=== PATIENT | female | born 1975 | race Caucasian/White ===

== ENCOUNTER 2024-04-08 16:27 | Inpatient (IN) ==
[2024-04-08 17:50] LABS: Basophils % (auto) 1.2 %; Eosinophils # (auto) 0.12 K/uL (0.00-0.50); Eosinophils % (auto) 1.5 %; Hematocrit (blood only) 41.6 % (37.0-47.0); Hemoglobin 13.8 g/dl (12.0-16.0); Immature Granulocytes # (auto) 0.02 K/uL (0.01-0.20); Immature Granulocytes % (auto) 0.2 %; Lymphocytes # (auto) 2.04 K/uL (1.20-3.40); Lymphocytes % (auto) 24.8 %; Mean Corpuscular Hemoglobin 29.7 pg (25.0-34.0); Mean Corpuscular Hgb Conc 33.2 g/dL (32.0-36.0); Mean Corpuscular Volume 89.5 fL (80.0-100.0); Mean Platelet Volume 11.1 fL (9.4-12.4); Monocytes # (auto) 0.58 K/uL (0.11-0.59); Monocytes % (auto) 7.1 %; Neutrophils # (auto) 5.35 K/uL (1.40-6.50); Neutrophils % (auto) 65.2 %; Platelet Count 237 K/uL (130-400); RDW Coefficient of Variation 13.6 % (11.5-14.5); RDW Standard Deviation 44.7 fL (36.4-46.3); Red Blood Count 4.65 M/uL (4.20-5.40); White Blood Count 8.21 K/ul (4.8-10.8)
--- NOTE | 2024-04-08 18:03 | XRay Report ---
EXAM: Radiograph of the Chest 1 View INDICATION: Syncope. TECHNIQUE: Frontal view of the chest. COMPARISON: 06/24/2023 FINDINGS: Lungs and pleural spaces: Increased interstitial markings is unchanged and appears chronic. No consolidation or pulmonary edema. No pleural effusion or pneumothorax. Heart: Shape and configuration within normal limits allowing for technique. Mediastinum: Normal contour. Bones/joints: No fracture, erosion or dislocation. Soft tissues: No abnormality noted. No radiopaque foreign body noted. Upper abdomen: No abnormality noted. IMPRESSION: No acute cardiopulmonary disease. ACT 112: Negative or not required by law. Electronically signed by Dione Skaggs 04-08-2024 6:03 PM
[2024-04-08 18:04] LABS: Albumin Globulin Ratio 1.5 (0.9-2); BUN Creatinine Ratio 18.6 (10-20); Bilirubin,Total 0.4 mg/dl (0.2-1.0); Globulin 2.7 gm/dl (2.5-4.0); Magnesium 1.6 mg/dl (1.7-2.4); Potassium 3.4 mmol/L (3.5-5.1); Total Protein 6.7 gm/dl (6.0-8.3)
[2024-04-08 18:06] LABS: Pregnancy Test, Serum Negative (Negative)
[2024-04-08 18:09] LABS: Troponin I High Sensitivity 4.6 pg/ml (0-14)
[2024-04-08 18:13] LABS: Partial Thromboplastin Ratio 0.9; Partial Thromboplastin Time 25 Seconds (21-31); Prothrombin Time 11.2 Seconds (9.0-12.0)
[2024-04-08 18:18] LABS: Thyroid Stimulating Hormone 3.226 uIu/ml (0.300-4.500)
--- NOTE | 2024-04-08 18:47 | CT Scan Report ---
EXAM: CT Head Without Intravenous Contrast INDICATION: Syncope x 3 today. TECHNIQUE: Axial computed tomography images of the head/brain without intravenous contrast. Sagittal and/or coronal reformats are provided. Sagittal and coronal reformatted images were created and reviewed. This CT exam was performed using one or more of the following dose reduction techniques: automated exposure control, adjustment of the mA and/or kV according to patient size, and/or use of iterative reconstruction technique. COMPARISON: No relevant prior studies available. FINDINGS: Limitations: None. Brain and extra-axial spaces: Old lacunar infarct left thalamus. No acute infarct. No hemorrhage. No extra-axial fluid collection or hydrocephalus. No significant white matter disease. Bones/joints: No abnormality noted. Soft tissues: No significant abnormality noted. Vasculature: No acute abnormality noted. Sinuses: No layering fluid in the visualized portions of the paranasal sinuses. Mastoid air cells: Chronic sclerotic changes left mastoid air cells. No mastoid effusion. Orbits: No significant abnormality noted. IMPRESSION: No acute findings in the head/brain. ACT 112: Negative or not required by law. Electronically signed by Dione Skaggs 04-08-2024 6:46 PM
--- NOTE | 2024-04-08 18:53 | CT Scan Report ---
EXAM: CT Cervical Spine Without Intravenous Contrast INDICATION: Syncope x 3 today. TECHNIQUE: Axial computed tomography images of the cervical spine without intravenous contrast. Sagittal and coronal reformatted images were created and reviewed. This CT exam was performed using one or more of the following dose reduction techniques: automated exposure control, adjustment of the mA and/or kV according to patient size, and/or use of iterative reconstruction technique. COMPARISON: 12/06/2023 FINDINGS: Limitations: None. Vertebrae: Stable facet arthrosis and spondylosis, uncal spurring and degrees of vertebral body fusion from C4-C7 unchanged. Stable anterior bridging spondylosis C3-C4 and developing bridging C7-T1. Anterior fusion plate intact and well-seated. No fracture or traumatic subluxation. Discs/spinal canal/neural foramina: Metallic intervertebral disc spacers at the fusion levels with complete obliteration of the intervertebral disc spaces. There is mild narrowing of C3-C4 and C7-T1. There is stable moderate to severe canal and foraminal stenosis at C4-C5, C5-C6 and C6-C7. Soft tissues: No significant abnormality noted. Lung apices: No significant abnormality noted. IMPRESSION: Stable postoperative and degenerative changes. No acute abnormality. ACT 112: Negative or not required by law. Electronically signed by Dione Skaggs 04-08-2024 6:53 PM
--- NOTE | 2024-04-08 19:11 | Emergency Department Note ---
Impression & Plan Syncope and collapse, Hypomagnesemia, Acute UTI ED Provider Note Provider: Ricardo Quiñonez MD CHIEF COMPLAINT: Syncope x 2, question convulsion HISTORY OF PRESENT ILLNESS: Patient is a 48-year-old female past medical history of neck surgery presenting here today via ambulance from home. Patient states she has had 2 episodes today where she syncopized and collapsed to the ground. States she felt a bit off before this happened. Fell to the ground. Struck her head. Complaining of some headache as well as a bit of chest discomfort. Maybe little bit of soreness of the left hip. Patient denies significant nausea or vomiting at this time. Denies recent illness or fever. Denies a history of seizure events in the past. Patient did have a drink of alcohol earlier but minimal food. No drug use reported today. PAST MEDICAL HISTORY: As noted above MEDICATIONS: Denies regular SOCIAL HISTORY: , regular marijuana alcohol usage PHYSICAL EXAM: GENERAL: alert and oriented in no acute distress on stretcher Head: normocephalic and atraumatic EYES: No injection, discharge or icterus. PERRL, EOMI. NECK: Trachea midline. Supple. ENT: Mucous membranes pink and moist. LUNGS: Airway patent. No retractions. Breath sounds clear with good air entry bilaterally. HEART: Regular rate and rhythm. No chest wall tenderness ABDOMEN: Soft and non-tender, without guarding or rebound. SKIN: Acyanotic, warm, dry, without rashes EXTREMITIES: Without swelling, tenderness or deformity NEUROLOGICAL: No focal deficits. No aphasia. No facial droop or slurred speech. Normal strength and tone in the extremities. Sensation to gross touch normal. Ambulatory. EK bpm. Sinus rhythm with PAC. No acute ST segment elevation or depression with QTc 449. CONTINUOUS CARDIAC MONITORING: was ordered and showed a heart rate of 70s to 90s bpm in normal sinus rhythm GCS 15. Patient's laboratory studies and imaging reviewed. Differential includes Vasovagal event, dehydration, infection, hypoglycemia, electrolyte abnormalities, cardiac sources, intracerebral event, pulmonary embolism, seizure, toxicologic, neurologic, as well as other pathologies. IMPRESSION/MEDICAL DECISION MAKING: Patient with some prodrome and then to syncopal episode she reports. Possibly some period of convulsion with one of them. From report sounds like it lasted several seconds and the maybe had a third episode for EMS. Given some IV fluid prior to arrival. Reports maybe a little bit of chest discomfort and a little bit of head soreness. CT of the head and cervical spine reassuring. Chest x- ray reassuring. EKG and troponin are reassuring. Magnesium slightly low but no other severe electrolyte abnormalities. Normal renal function. Normal blood counts. Does report some urinary frequency and UA will be obtained. X-ray of the left hip to be obtained to exclude fracture or dislocation she has a soreness there but has good range of motion. Given some IV magnesium for repletion. Report regular alcohol and marijuana use but did have some drinks today so does not sound like withdrawal. May have contributed however to the syncope. No see evidence of significant trauma on physical exam and no believe we need further imaging. LFTs, lipase, and CK normal without findings concerning for pancreatitis, hepatitis, or rhabdomyolysis. UA does return concerning for infection given a dose of IV ceftriaxone. May be contributing to her episodes today. DIAGNOSIS: Multiple syncopes, fall, hypomagnesemia, acute UTI DISPOSITION: Hospitalist will evaluate Patient was agreeable with this plan. Past Med/Surg History Problem List (Updated 04/08/24 @ 22:06 by Ricardo Quiñonez M.D.) Acute UTI (Acute) Hypomagnesemia (Acute) Syncope and collapse (Acute) Encounter for pre-operative examination History of neck surgery ROM WNL PER PT Chronic radicular lumbar pain (Acute) Chronic neck pain Medical History Memory changes SEEING [facility] DR. GREENE Tachycardia WAS JUST STRESS RELATED Degenerative disc disease Osteoarthritis GERD (gastroesophageal reflux disease) Lung nodule PT UNAWARE OF DETAILS Post traumatic stress disorder Depression NO MEDS AT PRESENT Anxiety NO MEDS AT PRESENT Asthma USES RES INH APPROX 2X WEEK Fatty liver Chronic radicular lumbar pain Chronic neck pain Cirrhosis pt unaware Hepatitis C finished treatment Surgical History History of laparoscopy History of colonoscopy History of tooth extraction History of tonsillectomy History of neck surgery ROM WNL PER PT H/O tubal ligation Family History Other Heart disease Social History Smoking Status: Current every day smoker Tobacco Type: Cigarettes Cigarettes Per Day: 1 PPD; Second Hand Exposure: Yes; Do You Dip or Chew Tobacco: No; Hx Alcohol Use: Yes Alcohol type: beer, wine and hard liquor Hx Substance Use: Yes Substance Use Type Other:: SMOKES BID OR MORE > ADVISED Preferred Language: Bulgarian Communication Ability: 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 Home Meds Home Medications Medication Instructions Recorded Confirmed albuterol sulfate 90 mcg/actuation 2 puff inhalation Q4 PRN Wheezing 10/23/19 04/08/24 aerosol inhaler Results & Data (ED) Vital Signs Vital Signs - 24 hr 04/08/24 16:17 04/08/24 16:17 04/08/24 16:17 Temperature 36.8 C Temperature Source Oral Pulse Rate 87 Pulse Rate [Apical] 87 Pulse Rate from SpO2 Sensor Pulse Rhythm Regular Pulse Rhythm [Apical] Regular Pulse Strength Normal Pulse Strength [Apical] Normal Respiratory Rate 24 24 Respiratory Effort / Characteristics Non-Labored Non-Labored Respiratory Depth Normal Normal Respiratory Pattern Regular Regular Blood Pressure 125/77 Blood Pressure [Right Arm] 125/77 Blood Pressure Mean 93 Blood Pressure Mean [Right Arm] 93 Blood Pressure Position Lying Blood Pressure Position [Right Arm] Lying Pulse Oximetry 95 95 Oxygen Delivery Method Room Air Room Air Room Air Sepsis Recent Fever Within 48 Hours No Sepsis New/Unexplained Change in Mental Status No Sepsis Action Taken by Nursing No Action Required 04/08/24 16:46 04/08/24 17:00 04/08/24 17:29 Temperature Temperature Source Pulse Rate 87 94 H 85 Pulse Rate [Apical] Pulse Rate from SpO2 Sensor 96 H Pulse Rhythm Regular Pulse Rhythm [Apical] Pulse Strength Pulse Strength [Apical] Respiratory Rate 23 18 Respiratory Effort / Characteristics Respiratory Depth Respiratory Pattern Blood Pressure 124/76 Blood Pressure [Right Arm] Blood Pressure Mean 95 Blood Pressure Mean [Right Arm] Blood Pressure Position Blood Pressure Position [Right Arm] Pulse Oximetry 96 94 Oxygen Delivery Method Room Air Sepsis Recent Fever Within 48 Hours Sepsis New/Unexplained Change in Mental Status Sepsis Action Taken by Nursing 04/08/24 17:30 04/08/24 18:00 04/08/24 19:00 Temperature Temperature Source Pulse Rate 85 87 87 Pulse Rate [Apical] Pulse Rate from SpO2 Sensor 85 85 86 Pulse Rhythm Pulse Rhythm [Apical] Pulse Strength Pulse Strength [Apical] Respiratory Rate 15 24 16 Respiratory Effort / Characteristics Respiratory Depth Respiratory Pattern Blood Pressure 110/70 113/83 102/62 Blood Pressure [Right Arm] Blood Pressure Mean 83 86 76 Blood Pressure Mean [Right Arm] Blood Pressure Position Blood Pressure Position [Right Arm] Pulse Oximetry 94 95 95 Oxygen Delivery Method Nasal Cannula Sepsis Recent Fever Within 48 Hours Sepsis New/Unexplained Change in Mental Status Sepsis Action Taken by Nursing 04/08/24 19:30 04/08/24 20:33 04/08/24 21:00 Temperature Temperature Source Pulse Rate 80 79 66 Pulse Rate [Apical] Pulse Rate from SpO2 Sensor 81 66 Pulse Rhythm Pulse Rhythm [Apical] Pulse Strength Pulse Strength [Apical] Respiratory Rate 17 13 Respiratory Effort / Characteristics Respiratory Depth Respiratory Pattern Blood Pressure 109/65 106/63 Blood Pressure [Right Arm] Blood Pressure Mean 76 77 Blood Pressure Mean [Right Arm] Blood Pressure Position Blood Pressure Position [Right Arm] Pulse Oximetry 94 95 Oxygen Delivery Method Room Air Room Air Sepsis Recent Fever Within 48 Hours Sepsis New/Unexplained Change in Mental Status Sepsis Action Taken by Nursing 04/08/24 21:30 Temperature Temperature Source Pulse Rate 73 Pulse Rate [Apical] Pulse Rate from SpO2 Sensor 72 Pulse Rhythm Pulse Rhythm [Apical] Pulse Strength Pulse Strength [Apical] Respiratory Rate 18 Respiratory Effort / Characteristics Respiratory Depth Respiratory Pattern Blood Pressure 101/67 Blood Pressure [Right Arm] Blood Pressure Mean 84 Blood Pressure Mean [Right Arm] Blood Pressure Position Blood Pressure Position [Right Arm] Pulse Oximetry 95 Oxygen Delivery Method Room Air Sepsis Recent Fever Within 48 Hours Sepsis New/Unexplained Change in Mental Status Sepsis Action Taken by Nursing Laboratory Data 04/08/24 17:02 04/08/24 17:02 Lab Results 04/08/24 04/08/24 04/08/24 Range/Units 17:02 19:20 19:38 WBC 8.21 (4.8-10.8) K/ul RBC 4.65 (4.20-5.40) M/uL Hgb 13.8 (12.0-16.0) g/dl Hct 41.6 (37.0-47.0) % MCV 89.5 (80.0-100.0) fL MCH 29.7 (25.0-34.0) pg MCHC 33.2 (32.0-36.0) g/dL RDW Std Deviation 44.7 (36.4-46.3) fL RDW Coeff of Opal 13.6 (11.5-14.5) % Plt Count 237 (130-400) K/uL MPV 11.1 (9.4-12.4) fL Immature Gran % (Auto) 0.2 % Neut % (Auto) 65.2 % Lymph % (Auto) 24.8 % Bartholomew % (Auto) 7.1 % Eos % (Auto) 1.5 % Baso % (Auto) 1.2 % Neut # (Auto) 5.35 (1.40-6.50) K/uL Lymph # (Auto) 2.04 (1.20-3.40) K/uL Bartholomew # (Auto) 0.58 (0.11-0.59) K/uL Eos # (Auto) 0.12 (0.00-0.50) K/uL Baso # (Auto) 0.10 (0.00-0.20) K/uL Immature Gran # (Auto) 0.02 (0.01-0.20) K/uL PT 11.2 (9.0-12.0) Seconds INR 1.0 (0.9-1.1) APTT 25 (21-31) Seconds PTT Ratio 0.9 Sodium 139 (136-145) mmol/L Potassium 3.4 L (3.5-5.1) mmol/L Chloride 104 (98-107) mmol/L Carbon Dioxide 24 (21-32) mmol/L Anion Gap 11 (3-11) BUN 13 (6-23) mg/dl Creatinine 0.70 (0.6-1.2) mg/dl Est Cr Clr Drug Dosing 97.0 ml/min eGFR 105.30 BUN/Creatinine Ratio 18.6 (10-20) Glucose 99 (70-99(Fasting)) mg/dl Calcium 9.0 (8.6-10.3) mg/dl Magnesium 1.6 L (1.7-2.4) mg/dl Total Bilirubin 0.4 (0.2-1.0) mg/dl AST 15 (13-39) U/L ALT 7 (7-52) U/L Alkaline Phosphatase 80 (34-104) U/L Total Creatine Kinase 37 (26-192) U/L Troponin I High Sens 4.6 (0-14) pg/ml Total Protein 6.7 (6.0-8.3) gm/dl Albumin 4.0 (3.4-5.0) gm/dl Globulin 2.7 (2.5-4.0) gm/dl Albumin/Globulin Ratio 1.5 (0.9-2) Lipase 23 (11-82) U/L TSH 3.226 (0.300-4.500) uIu/ml HCG, Qual Negative (Negative) Urine Color Yellow Urine Appearance Cloudy A (Clear) Urine pH 6.0 (4.5-7.5) Ur Specific [place] >= 1.030 (1.000-1.030) Urine Protein 1+ H (Negative) Urine Glucose (UA) Negative (Negative) Urine Ketones Negative (Negative) Urine Blood Trace-intact H (Negative) Urine Nitrite Positive A (Negative) Urine Bilirubin Negative (Negative) Urine Urobilinogen Negative (Negative) Ur Leukocyte Esterase 1+ H (Negative) Urine RBC 3-5 H (0-2) /hpf Urine WBC >50 H (0-5) /hpf Ur Epithelial Cells 0-2 (0-2) /hpf Urine Bacteria 4+ H (None Seen) Ethyl Alcohol mg/dL < 10.0 (<10.0) mg/dl Administered Medications Discontinued Medications Magnesium Sulfate/Dextrose (Magnesium Sulfate / D5w) 1 gm in 100 mls @ 200 mls/hr IV Q30M [facility] Stop: 04/08/24 20:06 Last Infusion: 04/08/24 21:05 Dose: Infused Documented By: Admin: 04/08/24 20:18 Dose: 200 mls/hr Documented By: Infusion: 04/08/24 20:18 Dose: Infused Documented By: Admin: 04/08/24 19:29 Dose: 200 mls/hr Documented By: SRL Ceftriaxone Sodium (Rocephin) 2,000 mg in 50 mls @ 100 mls/hr IV NOW STA Stop: 04/08/24 20:02 Last Infusion: 04/08/24 20:47 Dose: Infused Documented By: Admin: 04/08/24 20:18 Dose: 100 mls/hr Documented By: SHASTA Thiamine HCl 100 mg/ Syringe 10 mls @ 2 mls/min IV NOW STA Stop: 04/08/24 20:53 Last Admin: 04/08/24 21:52 Dose: 2 mls/min Documented By: SHASTA Imaging Data Radiologist's Impression: Cervical Spine CT 04/08/24 17:29 EXAM: CT Cervical Spine Without Intravenous Contrast INDICATION: Syncope x 3 today. TECHNIQUE: Axial computed tomography images of the cervical spine without intravenous contrast. Sagittal and coronal reformatted images were created and reviewed. This CT exam was performed using one or more of the following dose reduction techniques: automated exposure control, adjustment of the mA and/or kV according to patient size, and/or use of iterative reconstruction technique. COMPARISON: 12/06/2023 FINDINGS: Limitations: None. Vertebrae: Stable facet arthrosis and spondylosis, uncal spurring and degrees of vertebral body fusion from C4-C7 unchanged. Stable anterior bridging spondylosis C3-C4 and developing bridging C7-T1. Anterior fusion plate intact and well-seated. No fracture or traumatic subluxation. Discs/spinal canal/neural foramina: Metallic intervertebral disc spacers at the fusion levels with complete obliteration of the intervertebral disc spaces. There is mild narrowing of C3-C4 and C7-T1. There is stable moderate to severe canal and foraminal stenosis at C4-C5, C5-C6 and C6-C7. Soft tissues: No significant abnormality noted. Lung apices: No significant abnormality noted. IMPRESSION: Stable postoperative and degenerative changes. No acute abnormality. ACT 112: Negative or not required by law. Electronically signed by Dione Skaggs 04-08-2024 6:53 PM Chest X-Ray 04/08/24 17:29 EXAM: Radiograph of the Chest 1 View INDICATION: Syncope. TECHNIQUE: Frontal view of the chest. COMPARISON: 06/24/2023 FINDINGS: Lungs and pleural spaces: Increased interstitial markings is unchanged and appears chronic. No consolidation or pulmonary edema. No pleural effusion or pneumothorax. Heart: Shape and configuration within normal limits allowing for technique. Mediastinum: Normal contour. Bones/joints: No fracture, erosion or dislocation. Soft tissues: No abnormality noted. No radiopaque foreign body noted. Upper abdomen: No abnormality noted. IMPRESSION: No acute cardiopulmonary disease. ACT 112: Negative or not required by law. Electronically signed by Dione Skaggs 04-08-2024 6:[address] 04/08/24 17:29 EXAM: CT Head Without Intravenous Contrast INDICATION: Syncope x 3 today. TECHNIQUE: Axial computed tomography images of the head/brain without intravenous contrast. Sagittal and/or coronal reformats are provided. Sagittal and coronal reformatted images were created and reviewed. This CT exam was performed using one or more of the following dose reduction techniques: automated exposure control, adjustment of the mA and/or kV according to patient size, and/or use of iterative reconstruction technique. COMPARISON: No relevant prior studies available. FINDINGS: Limitations: None. Brain and extra-axial spaces: Old lacunar infarct left thalamus. No acute infarct. No hemorrhage. No extra-axial fluid collection or hydrocephalus. No significant white matter disease. Bones/joints: No abnormality noted. Soft tissues: No significant abnormality noted. Vasculature: No acute abnormality noted. Sinuses: No layering fluid in the visualized portions of the paranasal sinuses. Mastoid air cells: Chronic sclerotic changes left mastoid air cells. No mastoid effusion. Orbits: No significant abnormality noted. IMPRESSION: No acute findings in the head/brain. ACT 112: Negative or not required by law. Electronically signed by Dione Skaggs 04-08-2024 6:46 PM Hip/Pelvis X-Ray 04/08/24 19:11 Exam(s): XR HIP + PELVIS, 1 view EXAM: XR Left Hip With Pelvis When Performed, 2 or 3 Views CLINICAL HISTORY: Reason for exam: fall, pain. TECHNIQUE: Two or three views of the left hip with pelvis when performed. COMPARISON: No relevant prior studies available. FINDINGS: Bones/joints: Unremarkable. No fracture or malalignment. IMPRESSION: Normal left hip x-rays. Electronically signed by: Barron Calderon MD 04/08/24 21:41 PM Discharge Plan Visit Data Chief Complaint: Syncope ED Provider: Ricardo Quiñonez Discharge Problem: Syncope and collapse, Hypomagnesemia, Acute UTI Patient Disposition: Admitted As Inpatient Discharge Instructions Interventions: ED Discharge Assessment Last Done: 04/08/24 21:51 Forms Stand Alone Forms: [employer] Prescriptions Prescriptions: No Action albuterol sulfate 90 mcg/actuation HFA aerosol inhaler 2 puff INHALATION Q4 PRN (Reason: Wheezing) Rx Instructions: Pt states she only uses once in awhile. Referrals Referrals: Leticia Moss PA-C [Primary Care Provider] -
[2024-04-08] MEDS: MAGNESIUM SULFATE / D5W 1 GM/100 ML BAG IV SCH (19:29)
[2024-04-08 19:30] LABS: Appearance Urine Cloudy (Clear); Bilirubin Urine Negative (Negative); Blood Urine Trace-intact (Negative); Color Urine Yellow; Glucose Urine UA Negative (Negative); Ketones Urine Negative (Negative); Leukocyte Esterase Urine 1+ (Negative); Nitrite Urine Positive (Negative); Protein Urine 1+ (Negative); Specific Gravity Urine >= 1.030 (1.000-1.030); Urobilinogen Urine Negative (Negative)
[2024-04-08 20:05] LABS: Bacteria Urine 4+ (None Seen); Epithelial Cell Urine 0-2 /hpf (0-2); WBC Urine >50 /hpf (0-5)
[2024-04-08] MEDS: cefTRIAXone SODIUM 2,000 MG/50 ML BAG IV STA (20:18)
--- NOTE | 2024-04-08 21:42 | XRay Report ---
Exam(s): XR HIP + PELVIS, 1 view EXAM: XR Left Hip With Pelvis When Performed, 2 or 3 Views CLINICAL HISTORY: Reason for exam: fall, pain. TECHNIQUE: Two or three views of the left hip with pelvis when performed. COMPARISON: No relevant prior studies available. FINDINGS: Bones/joints: Unremarkable. No fracture or malalignment. IMPRESSION: Normal left hip x-rays. Electronically signed by: Barron Calderon MD 04/08/24 21:41 PM
[2024-04-08] MEDS: THIAMINE HCL 100 MG in SYRINGE 9 ML IV STA (21:52)
[2024-04-08] MEDS ORDERED: ALBUTEROL HFA 8 GM INHALER INH PRN (22:10)
[2024-04-08] MEDS ORDERED: LORazepam 2 MG/1 ML VIAL IV PRN ×4 (22:10)
[2024-04-08] MEDS ORDERED: GABAPENTIN 1200MG ALCOHOL WITHDRAWAL LOAD PO STA (22:10)
[2024-04-08] MEDS ORDERED: POLYETHYLENE (MIRALAX) 17 GM PACK PO PRN (22:10)
[2024-04-08] MEDS ORDERED: Ativan IV Alcohol Withdrawal--Active Protocol IV PRN (22:10)
[2024-04-08] MEDS ORDERED: NITROGLYCERIN SL 0.4 MG/TAB TAB SL PRN (22:10)
[2024-04-08] MEDS: ACETAMINOPHEN 325 MG TAB PO PRN (22:35)
[2024-04-08] MEDS: GABAPENTIN 600 MG TAB PO ONE (22:36)
[2024-04-08] MEDS: SODIUM CHLORIDE 0.9% 1,000 ML IV SCH (22:39)
[2024-04-09] MEDS: GABAPENTIN 600 MG TAB PO SCH (04:28)
--- NOTE | 2024-04-09 05:59 | History & Physical Report ---
Date of Service April 08, 2024 Assessment & Plan (1) Syncope and collapse: Plan: 48-year-old female with past medical history significant for chronic hepatitis C cured after antiviral drug therapy, gastroparesis, left foot drop, cervical myelopathy, ongoing alcoholism, tobacco use disorder, paranoia, depression, generalized anxiety disorder, psychosocial stressors presents with syncope. Patient was sitting in the car when she felt blurred vision and sweating and she went out of the car when she suddenly passed out and fell down. Patient thinks she hit her head. She passed out for few seconds. Her was with her. After she woke up she passed out again for few more seconds. Then she sat on the chair . As EMS was coming she had lot of shaking of the body. She remembers shaking. No biting of the tongue. No bowel or bladder incontinence. Has some mild headache. Has mild chest discomfort. Currently no nausea. No cough. No runny nose or sore throat. Eating and drinking okay. No abdominal pain. Normal bowel movements. She says she has burning micturition since about a month. She says she drinks 3-5 shots of vodka daily. Last drink was mixed drink in the morning. Currently hemodynamics are okay. Patient also has history of cervical cord compression and decompression and progressive gait dysfunction and follows with neurology. Patient states she falls frequently. Patient says she is not taking any medication currently. Syncope and collapse CT head is okay EKG and troponin okay Will monitor telemetry Gentle fluids Orthostatics Serial cardiac enzymes and echo Consult cardiology in a.m. Possible seizures Ongoing alcoholism Patient was shaking but no loss of consciousness during episode We will check EEG Neuroconsult Alcoholism IV thiamine and folic acid Multivitamins Alcohol withdrawal protocol with gabapentin and Ativan as needed Close monitor Acute UTI Possible contributing to current symptoms Rocephin Will follow cultures Depression Generalized anxiety disorder Paranoia Currently not on any medications may may need to follow with psychiatrist History of hep C cured after antiviral drug therapy DVT prophylaxis SCDs for now Disposition Telemetry Full code. History of Present Illness Chief Complaint: Syncope Primary Care Provider: Leticia Moss PA-C 48-year-old female with past medical history significant for chronic hepatitis C cured after antiviral drug therapy, gastroparesis, left foot drop, cervical myelopathy, ongoing alcoholism, tobacco use disorder, paranoia, depression, generalized anxiety disorder, psychosocial stressors presents with syncope. Patient was sitting in the car when she felt blurred vision and sweating and she went out of the car when she suddenly passed out and fell down. Patient thinks she hit her head. She passed out for few seconds. Her was with her. After she woke up she passed out again for few more seconds. Then she sat on the chair . As EMS was coming she had lot of shaking of the body. She remembers shaking. No biting of the tongue. No bowel or bladder incontinence. Has some mild headache. Has mild chest discomfort. Currently no nausea. No cough. No runny nose or sore throat. Eating and drinking okay. No abdominal pain. Normal bowel movements. She says she has burning micturition since about a month. She says she drinks 3-5 shots of vodka daily. Last drink was mixed drink in the morning. Currently hemodynamics are okay. Patient also has h istory of cervical cord compression and decompression and progressive gait dysfunction and follows with neurology. Patient states she falls frequently. Patient says she is not taking any medication currently. Past medical history. As mentioned above Past surgical history. Arthrodesis. Colonoscopy and EGD. EGD with endoscopic ultrasound. Injection of lumbosacral spine. Pyloromyotomy. Discectomy anterior cervical. Ultrasound guided right breast biopsy/fibroadenoma. Social history. . Smokes 0.5 packs a day. Alcohol 3-5 shots of vodka daily. Smokes marijuana 2 times a week as per epic. History of IV drug use and reason for hep C as per epic. Family history. Son has Jackson's, bipolar disorder. Mother had emphysema. Sister has GERD. Father had lung disorder. Cousin has parkinsonism. Allergies Allergy/AdvReac Type Severity Reaction Status Date / Time Antibiotic - Unknown Allergy Intermediate Caused a Uncoded 12/06/23 11:28 rash on my legs, but I don't remember which one. Home Medications Medication Instructions Recorded Confirmed Type albuterol sulfate 90 mcg/actuation 2 puff inhalation Q4 PRN Wheezing 10/23/19 04/08/24 History aerosol inhaler Past Med/Surg History Problem List (Updated 04/08/24 @ 22:10 by Background Daemon) Acute UTI (Acute) Hypomagnesemia (Acute) Syncope and collapse (Acute) Encounter for pre-operative examination History of neck surgery ROM WNL PER PT Chronic radicular lumbar pain (Acute) Chronic neck pain Medical History Memory changes SEEING [facility]. GREENE Tachycardia WAS JUST STRESS RELATED Degenerative disc disease Osteoarthritis GERD (gastroesophageal reflux disease) Lung nodule PT UNAWARE OF DETAILS Post traumatic stress disorder Depression NO MEDS AT PRESENT Anxiety NO MEDS AT PRESENT Asthma USES RES INH APPROX 2X WEEK Fatty liver Chronic radicular lumbar pain Chronic neck pain Cirrhosis pt unaware Hepatitis C finished treatment Surgical History History of laparoscopy History of colonoscopy History of tooth extraction History of tonsillectomy History of neck surgery ROM WNL PER PT H/O tubal ligation Family History Other Heart disease Social History Smoking Status: Current every day smoker Tobacco Type: Cigarettes Cigarettes Per Day: 1 pack; Second Hand Exposure: Yes; Do You Dip or Chew Tobacco: No; Hx Alcohol Use: Yes Alcohol type: hard liquor Hx Substance Use: Yes Last Used Substance: Hours (ago) Substance Use Type Other:: SMOKES BID OR MORE > ADVISED Preferred Language: Guinean Communication Ability: Effective Merchandising Internship Required: No Beliefs That Will Affect Care: None marital status: Single Current Living Situation: Spouse current occupational status: unemployed Other Information That Helps Us Care for You: No Feels Safe at Home: Yes Safety Concerns: Feels Safe At This Time Assistive Devices: Glasses Review of Systems Review of Systems: All systems reviewed & are unremarkable except as noted in HPI & below Physical Exam Physical Exam: General-Not in distress Head- atraumatic Eyes- PERRL. ENT- oropharynx clear Neck- supple, no JVD. Lungs- clear to auscultation no wheezing or crackles Heart- regular rate and rhythm; no murmur, no gallop. Abdomen- normal bowel sounds, soft, nontender, no distension Extremities- no pretibial edema, no erythema seen Neuro- alert, oriented PERRL, no facial palsy; no dysarthria; obeys commands, moves extremities Results & Data Results & Data Vital Signs (Past 12 Hours) Vital Signs Temp Pulse Pulse Resp BP BP Pulse Ox 04/08/24 20:33 79 04/08/24 19:00 87 16 102/62 95 04/08/24 18:00 87 24 113/83 95 04/08/24 17:30 85 15 110/70 94 04/08/24 17:29 85 18 94 04/08/24 17:00 94 H 23 124/76 96 04/08/24 16:46 87 04/08/24 16:17 87 24 125/77 95 04/08/24 16:17 04/08/24 16:17 36.8 C 87 24 125/77 95 O2 Del Method 04/08/24 20:33 04/08/24 19:00 Nasal Cannula 04/08/24 18:00 04/08/24 17:30 04/08/24 17:29 Room Air 04/08/24 17:00 04/08/24 16:46 04/08/24 16:17 Room Air 04/08/24 16:17 Room Air 04/08/24 16:17 Room Air Diagnostic Findings Laboratory Results WBC 8.21 K/ul (4.8-10.8) 04/08/24 17:02 RBC 4.65 M/uL (4.20-5.40) 04/08/24 17:02 Hgb 13.8 g/dl (12.0-16.0) 04/08/24 17:02 Hct 41.6 % (37.0-47.0) 04/08/24 17:02 MCV 89.5 fL (80.0-100.0) 04/08/24 17:02 MCH 29.7 pg (25.0-34.0) 04/08/24 17:02 MCHC 33.2 g/dL (32.0-36.0) 04/08/24 17:02 RDW Std Deviation 44.7 fL (36.4-46.3) 04/08/24 17:02 RDW Coeff of Opal 13.6 % (11.5-14.5) 04/08/24 17:02 Plt Count 237 K/uL (130-400) 04/08/24 17:02 MPV 11.1 fL (9.4-12.4) 04/08/24 17:02 Immature Gran % (Auto) 0.2 % 04/08/24 17:02 Neut % (Auto) 65.2 % 04/08/24 17:02 Lymph % (Auto) 24.8 % 04/08/24 17:02 Hart % (Auto) 7.1 % 04/08/24 17:02 Eos % (Auto) 1.5 % 04/08/24 17:02 Baso % (Auto) 1.2 % 04/08/24 17:02 Neut # (Auto) 5.35 K/uL (1.40-6.50) 04/08/24 17:02 Lymph # (Auto) 2.04 K/uL (1.20-3.40) 04/08/24 17:02 Hart # (Auto) 0.58 K/uL (0.11-0.59) 04/08/24 17:02 Eos # (Auto) 0.12 K/uL (0.00-0.50) 04/08/24 17:02 Baso # (Auto) 0.10 K/uL (0.00-0.20) 04/08/24 17:02 Immature Gran # (Auto) 0.02 K/uL (0.01-0.20) 04/08/24 17:02 PT 11.2 Seconds (9.0-12.0) 04/08/24 17:02 INR 1.0 (0.9-1.1) 04/08/24 17:02 APTT 25 Seconds (21-31) 04/08/24 17:02 PTT Ratio 0.9 04/08/24 17:02 Sodium 139 mmol/L (136-145) 04/08/24 17:02 Potassium 3.4 mmol/L (3.5-5.1) L 04/08/24 17:02 Chloride 104 mmol/L (98-107) 04/08/24 17:02 Carbon Dioxide 24 mmol/L (21-32) 04/08/24 17:02 Anion Gap 11 (3-11) 04/08/24 17:02 BUN 13 mg/dl (6-23) 04/08/24 17:02 Creatinine 0.70 mg/dl (0.6-1.2) 04/08/24 17:02 Est Cr Clr Drug Dosing 97.0 ml/min 04/08/24 17:02 eGFR 105.30 04/08/24 17:02 BUN/Creatinine Ratio 18.6 (10-20) 04/08/24 17:02 Glucose 99 mg/dl (70-99(Fasting)) 04/08/24 17:02 Calcium 9.0 mg/dl (8.6-10.3) 04/08/24 17:02 Magnesium 1.6 mg/dl (1.7-2.4) L 04/08/24 17:02 Total Bilirubin 0.4 mg/dl (0.2-1.0) 04/08/24 17:02 AST 15 U/L (13-39) 04/08/24 17:02 ALT 7 U/L (7-52) 04/08/24 17:02 Alkaline Phosphatase 80 U/L (34-104) 04/08/24 17:02 Total Creatine Kinase 37 U/L (26-192) 04/08/24 17:02 Troponin I High Sens 4.6 pg/ml (0-14) 04/08/24 17:02 Total Protein 6.7 gm/dl (6.0-8.3) 04/08/24 17:02 Albumin 4.0 gm/dl (3.4-5.0) 04/08/24 17:02 Globulin 2.7 gm/dl (2.5-4.0) 04/08/24 17:02 Albumin/Globulin Ratio 1.5 (0.9-2) 04/08/24 17:02 Lipase 23 U/L (11-82) 04/08/24 17:02 TSH 3.226 uIu/ml (0.300-4.500) 04/08/24 17:02 HCG, Qual Negative (Negative) 04/08/24 17:02 Urine Color Yellow 04/08/24 19:20 Urine Appearance Cloudy (Clear) A 04/08/24 19:20 Urine pH 6.0 (4.5-7.5) 04/08/24 19:20 Ur Specific Hope >= 1.030 (1.000-1.030) 04/08/24 19:20 Urine Protein 1+ (Negative) H 04/08/24 19:20 Urine Glucose (UA) Negative (Negative) 04/08/24 19:20 Urine Ketones Negative (Negative) 04/08/24 19:20 Urine Blood Trace-intact (Negative) H 04/08/24 19:20 Urine Nitrite Positive (Negative) A 04/08/24 19:20 Urine Bilirubin Negative (Negative) 04/08/24 19:20 Urine Urobilinogen Negative (Negative) 04/08/24 19:20 Ur Leukocyte Esterase 1+ (Negative) H 04/08/24 19:20 Urine RBC 3-5 /hpf (0-2) H 04/08/24 19:20 Urine WBC >50 /hpf (0-5) H 04/08/24 19:20 Ur Epithelial Cells 0-2 /hpf (0-2) 04/08/24 19:20 Urine Bacteria 4+ (None Seen) H 04/08/24 19:20 Ethyl Alcohol mg/dL < 10.0 mg/dl (<10.0) 04/08/24 19:[address] 04/08/24 17:29 EXAM: CT Cervical Spine Without Intravenous Contrast INDICATION: Syncope x 3 today. TECHNIQUE: Axial computed tomography images of the cervical spine without intravenous contrast. Sagittal and coronal reformatted images were created and reviewed. This CT exam was performed using one or more of the following dose reduction techniques: automated exposure control, adjustment of the mA and/or kV according to patient size, and/or use of iterative reconstruction technique. COMPARISON: 12/06/2023 FINDINGS: Limitations: None. Vertebrae: Stable facet arthrosis and spondylosis, uncal spurring and degrees of vertebral body fusion from C4-C7 unchanged. Stable anterior bridging spondylosis C3-C4 and developing bridging C7-T1. Anterior fusion plate intact and well-seated. No fracture or traumatic subluxation. Discs/spinal canal/neural foramina: Metallic intervertebral disc spacers at the fusion levels with complete obliteration of the intervertebral disc spaces. There is mild narrowing of C3-C4 and C7-T1. There is stable moderate to severe canal and foraminal stenosis at C4-C5, C5-C6 and C6-C7. Soft tissues: No significant abnormality noted. Lung apices: No significant abnormality noted. IMPRESSION: Stable postoperative and degenerative changes. No acute abnormality. ACT 112: Negative or not required by law. Electronically signed by Dione Skaggs 04-08-2024 6:53 PM Chest X-Ray 04/08/24 17:29 EXAM: Radiograph of the Chest 1 View INDICATION: Syncope. TECHNIQUE: Frontal view of the chest. COMPARISON: 06/24/2023 FINDINGS: Lungs and pleural spaces: Increased interstitial markings is unchanged and appears chronic. No consolidation or pulmonary edema. No pleural effusion or pneumothorax. Heart: Shape and configuration within normal limits allowing for technique. Mediastinum: Normal contour. Bones/joints: No fracture, erosion or dislocation. Soft tissues: No abnormality noted. No radiopaque foreign body noted. Upper abdomen: No abnormality noted. IMPRESSION: No acute cardiopulmonary disease. ACT 112: Negative or not required by law. Electronically signed by Dione Skaggs 04-08-2024 6:[address] 04/08/24 17:29 EXAM: CT Head Without Intravenous Contrast INDICATION: Syncope x 3 today. TECHNIQUE: Axial computed tomography images of the head/brain without intravenous contrast. Sagittal and/or coronal reformats are provided. Sagittal and coronal reformatted images were created and reviewed. This CT exam was performed using one or more of the following dose reduction techniques: automated exposure control, adjustment of the mA and/or kV according to patient size, and/or use of iterative reconstruction technique. COMPARISON: No relevant prior studies available. FINDINGS: Limitations: None. Brain and extra-axial spaces: Old lacunar infarct left thalamus. No acute infarct. No hemorrhage. No extra-axial fluid collection or hydrocephalus. No significant white matter disease. Bones/joints: No abnormality noted. Soft tissues: No significant abnormality noted. Vasculature: No acute abnormality noted. Sinuses: No layering fluid in the visualized portions of the paranasal sinuses. Mastoid air cells: Chronic sclerotic changes left mastoid air cells. No mastoid effusion. Orbits: No significant abnormality noted. IMPRESSION: No acute findings in the head/brain. ACT 112: Negative or not required by law. Electronically signed by Dione Skaggs 04-08-2024 6:46 PM Hip/Pelvis X-Ray 04/08/24 19:11 Exam(s): XR HIP + PELVIS, 1 view EXAM: XR Left Hip With Pelvis When Performed, 2 or 3 Views CLINICAL HISTORY: Reason for exam: fall, pain. TECHNIQUE: Two or three views of the left hip with pelvis when performed. COMPARISON: No relevant prior studies available. FINDINGS: Bones/joints: Unremarkable. No fracture or malalignment. IMPRESSION: Normal left hip x-rays. Electronically signed by: Barron Calderon MD 04/08/24 21:41 PM ECG Additional Comments: ECG. Sinus rhythm with PACs at the rate of 86. Possible left atrial lodgment. QTc 449. Code Status & VTE Plan VTE Prophylaxis Plan VTE Prophylaxis will be ordered: Yes
[2024-04-09 06:11] LABS: Basophils # (auto) 0.09 K/uL (0.00-0.20); Basophils % (auto) 0.9 %; Eosinophils # (auto) 0.19 K/uL (0.00-0.50); Eosinophils % (auto) 1.8 %; Hematocrit (blood only) 41.2 % (37.0-47.0); Hemoglobin 13.8 g/dl (12.0-16.0); Immature Granulocytes # (auto) 0.03 K/uL (0.01-0.20); Immature Granulocytes % (auto) 0.3 %; Lymphocytes # (auto) 2.41 K/uL (1.20-3.40); Lymphocytes % (auto) 23.1 %; Mean Corpuscular Hemoglobin 30.2 pg (25.0-34.0); Mean Corpuscular Hgb Conc 33.5 g/dL (32.0-36.0); Mean Corpuscular Volume 90.2 fL (80.0-100.0); Mean Platelet Volume 10.9 fL (9.4-12.4); Monocytes # (auto) 0.69 K/uL (0.11-0.59); Monocytes % (auto) 6.6 %; Neutrophils # (auto) 7.04 K/uL (1.40-6.50); Neutrophils % (auto) 67.3 %; Platelet Count 251 K/uL (130-400); RDW Coefficient of Variation 13.3 % (11.5-14.5); RDW Standard Deviation 43.8 fL (36.4-46.3); Red Blood Count 4.57 M/uL (4.20-5.40); White Blood Count 10.45 K/ul (4.8-10.8)
[2024-04-09 06:24] LABS: Albumin Level 3.8 gm/dl (3.4-5.0); BUN Creatinine Ratio 18.2 (10-20); Bilirubin Direct 0.1 mg/dl (0-0.2); Bilirubin,Total 0.5 mg/dl (0.2-1.0); Creatinine Clr Calc Pharmacy 102.9 ml/min; Magnesium 2.3 mg/dl (1.7-2.4); Phosphorus 3.7 mg/dl (2.5-4.9); Potassium 3.7 mmol/L (3.5-5.1); Total Protein 6.4 gm/dl (6.0-8.3)
[2024-04-09 06:30] LABS: Troponin I High Sensitivity 5.9 pg/ml (0-14)
[2024-04-09 07:49] LABS: Folate (Folic Acid),Ser orPlas 6.03 ng/ml (>5.38)
--- NOTE | 2024-04-09 07:58 | Electrocardiogram Report ---
Test Reason : Blood Pressure : */* mmHG Vent. Rate : 55 BPM Atrial Rate : 55 BPM P-R Int : 126 ms QRS Dur : 86 ms QT Int : 446 ms P-R-T Axes : 77 77 67 degrees QTcB Int : 426 ms Sinus bradycardia with sinus arrhythmia Otherwise normal ECG When compared with ECG of 08-Apr-2024 16:41, Premature atrial complexes are no longer Present Vent. rate has decreased by 31 bpm Confirmed by Des Lund ([id number]) on 04/09/2024 7:58:23 AM Referred By: REFERRED SELF Confirmed By: Des Lund
--- NOTE | 2024-04-09 07:58 | Electrocardiogram Report ---
Test Reason : Blood Pressure : */* mmHG Vent. Rate : 86 BPM Atrial Rate : 86 BPM P-R Int : 128 ms QRS Dur : 80 ms QT Int : 376 ms P-R-T Axes : 75 76 56 degrees QTcB Int : 449 ms Sinus rhythm with Premature atrial complexes Borderline ECG When compared with ECG of 06-Dec-2023 09:48, Premature atrial complexes are now Present Confirmed by Des Lund ([id number]) on 04/09/2024 7:58:15 AM Referred By: REFERRED SELF Confirmed By: Des Lund
[2024-04-09] MEDS ORDERED: INFLUENZA VACC TS2024-25(6m+)/PF (IIV3) 0.5mL Syr IM ONE (08:00)
[2024-04-09] MEDS: FOLIC ACID 1 MG in SYRINGE 9.8 ML IV SCH (09:54)
[2024-04-09] MEDS: THIAMINE HCL 100 MG in SYRINGE 9 ML IV SCH (09:55)
[2024-04-09] MEDS: MULTIVITAMIN TAB PO SCH (09:56)
--- NOTE | 2024-04-09 10:08 | Cardiology Consultation ---
Date of Consultation April 09, 2024 Assessment & Plan (1) Syncope and collapse: (2) Hypomagnesemia: Plan Patient admitted after 2 syncopal episodes with possible seizure like activity per patient/bystanders Head CT unremarkable. Neuro consulted and seizure work up pending. No arrhythmias on telemetry BP within normal limits since admission. EKG without ischemic change Low potassium and low magnesium on arrival, supplemented. Likely secondary to chronic alcohol abuse. Echocardiogram pending. HS troponin negative x3 since admission. Repeat pending this morning with atypical chest pain. Repeat EKG at time of chest pain, without ischemic changes. Would monitor for symptoms of alcohol withdrawal. Proceed with neurologic work up. Alcohol cessation encouraged. Patient reports she was previously in rehab for alcohol abuse. Continue on telemetry during admission. Consider outpatient ZIO monitor upon discharge. Case discussed with Dr. Reyes I spent a total of 60 minutes on the date of service in preparation, delivery, and documentation of the care provided to this patient, excluding any time spent in the performance of separately billed services. Elda Flannery PA-C Department of Cardiology, [facility] This chart was completed in part utilizing Speech Voice Recognition Software. Grammatical errors, random word insertions, pronoun errors, and incomplete sentences are an occasional consequence of this system due to software limitations, ambient noise, and hardware issues. Any formal questions or concerns about the content, text, or information contained within the body of this dictation should be directly addressed to the provider for clarification. Supervising Physician Co-Signing Physician Notes Attending attestation: Case reviewed with the advanced practitioner. I have personally performed a history and physical examination on the patient. I have reviewed the advanced practitioner's documentation on the date of service referenced in note, and I agree with, and take responsibility for the plan of care. Subjective: Sinus rhythm in the 70s to 80s noted on telemetry. Denies any additional loss of consciousness episodes while in the hospital. On review of systems describes a "chest pressure "which she had during my conversation with her and without rest, and was not characteristic and description of angina. Exam: Cardiovascular: Regular rhythm, no murmurs Data: Serial EKG tracings performed 04/08/2024 and 06/10/2023 are normal. Echocardiogram reveals no evidence of structural heart disease with normal LVEF. Normal myocardial thickness. Impression/ Plan: Loss of consciousness episodes in the setting of alcohol dependence. -Continue monitor on telemetry. -A 14-day outpatient Zio patch monitor. -Agree with plans for neurology workup. I spent a total of 20 minutes coordinating, documenting, and providing care for this patient excluding time spent in the performance of separately billed services or time spent by another provider. Richy Reyes, History of Present Illness Reason for Consultation: Syncope Requesting Physician: Isaias Hospitalist Attending Physician: Fernando Jones MD History of Present Illness Patient is a 48 year old female who presented to [facility] yesterday after several syncopal episodes yesterday afternoon, possibly associated with seizure like activity. Patient denies history of cardiovascular problems. She believes she had similar spells approx 20 years ago but never had formal evaluation. History includes: 1. Chronic alcohol abuse 2. marijuana use 3. Chronic neck pain with radiculopathy/left sided weakness Patient reports getting out of the car yesterday and felt hot/flushed and remembers falling to the ground. Apparently bystanders said she lost con sciousness for several minutes and had "convulsions". She was able to get back to her feet and then had a repeated incident. EMS was summoned. Patient reports she had no food intake yesterday. She admits to having an "eating disorder" and does not feel well when she eats so she goes long periods of time without food consumption. She admits to drinking 5-6 shots of alcohol the night before, and possibly one alcohol beverage yesterday before incident. Upon arrival to ER, EKG demonstrated NSR, without acute ischemic changes. Telemetry reviewed since admission demonstrating NSR without arrhythmias. Her magnesium was low at 1.6 and potassium was low at 3.4. These were supplemented. HS troponin negative x2 since admission. This morning, patient laying in bed. Admits to feeling anxious about what occurred. She reports mild substernal chest tightness developed this morning. No radiation. Described as a heaviness. No associated symptoms. No dizziness, lightheadedness, syncope or near syncope. No palpitations. Repeat EKG this morning x2 demonstrating normal sinus rhythm without ischemic changes. Repeat HS troponin this morning was negative. Repeat ordered for 10-11 AM. Allergies Allergy/AdvReac Type Severity Reaction Status Date / Time Antibiotic - Unknown Allergy Intermediate Caused a Uncoded 12/06/23 11:28 rash on my legs, but I don't remember which one. Home Medications Medication Instructions Recorded Confirmed Type albuterol sulfate 90 mcg/actuation 2 puff inhalation Q4 PRN Wheezing 10/23/19 04/08/24 History aerosol inhaler Patient History Medical History Memory changes SEEING [facility] DR. GREENE Tachycardia WAS JUST STRESS RELATED Degenerative disc disease Osteoarthritis GERD (gastroesophageal reflux disease) Lung nodule PT UNAWARE OF DETAILS Post traumatic stress disorder Depression NO MEDS AT PRESENT Anxiety NO MEDS AT PRESENT Asthma USES RES INH APPROX 2X WEEK Fatty liver Chronic radicular lumbar pain Chronic neck pain Cirrhosis pt unaware Hepatitis C finished treatment Surgical History History of laparoscopy History of colonoscopy History of tooth extraction History of tonsillectomy History of neck surgery ROM WNL PER PT H/O tubal ligation Family History Other Heart disease Social History Smoking Status: Current every day smoker Tobacco Type: Cigarettes Cigarettes Per Day: 1 pack; Second Hand Exposure: Yes; Do You Dip or Chew Tobacco: No; Hx Alcohol Use: Yes Alcohol type: hard liquor Hx Substance Use: Yes Last Used Substance: Hours (ago) Substance Use Type Other:: SMOKES BID OR MORE > ADVISED Preferred Language: Slovak Communication Ability: Effective Knuckler Required: No Beliefs That Will Affect Care: None marital status: Single Current Living Situation: Spouse current occupational status: unemployed Other Information That Helps Us Care for You: No Feels Safe at Home: Yes Safety Concerns: Feels Safe At This Time Assistive Devices: Glasses Review of Systems Review of Systems: All systems reviewed & are unremarkable except as noted in HPI & below Physical Exam Constitutional: WD/WN, vitals as above Neck: trachea midline, no thyromegaly Respiratory: normal respiratory effort; no labored breathing Auscultation: lungs clear to auscultation bilaterally Cardiovascular: Rate/Rhythm: regular rate and regular rhythm Heart Sounds: normal S1 and normal S2; no murmur Vessels: no JVD Extremities: no edema Gastrointestinal (Abdomen): normal bowel sounds, soft, nontender, no hepatosplenomegaly Musculoskeletal: no cyanosis or clubbing, extremities motor strength 5/5 Neurologic: PERRL, EOMI, accommodation nl, no face palsy, no dysarthria Psychiatric: A+Ox3, euthymic affect Results & Data Vital Signs (Past 12 Hours) Vital Signs Temp Pulse Pulse Resp BP Pulse Ox O2 Del Method 04/09/24 08:23 66 04/09/24 08:23 36.5 C 76 20 125/79 96 Room Air 04/09/24 02:36 36.6 C 63 18 108/71 96 Room Air 04/08/24 22:16 36.6 C 69 18 114/69 97 Room Air 04/08/24 22:15 61 Laboratory Results Cardiac Enzymes 04/08/24 04/09/24 Range/Units 17:02 05:39 AST 15 26 (13-39) U/L Troponin I High Sens 4.6 5.9 (0-14) pg/ml Coagulation 04/08/24 Range/Units 17:02 PT 11.2 (9.0-12.0) Seconds APTT 25 (21-31) Seconds CBC 04/08/24 04/09/24 Range/Units 17:02 05:39 WBC 8.21 10.45 (4.8-10.8) K/ul RBC 4.65 4.57 (4.20-5.40) M/uL Hgb 13.8 13.8 (12.0-16.0) g/dl Hct 41.6 41.2 (37.0-47.0) % Plt Count 237 251 (130-400) K/uL Neut # (Auto) 5.35 7.04 H (1.40-6.50) K/uL Lymph # (Auto) 2.04 2.41 (1.20-3.40) K/uL Powell # (Auto) 0.58 0.69 H (0.11-0.59) K/uL Eos # (Auto) 0.12 0.19 (0.00-0.50) K/uL Baso # (Auto) 0.10 0.09 (0.00-0.20) K/uL Comprehensive Metabolic Panel 04/08/24 04/09/24 Range/Units 17:02 05:39 Sodium 139 138 (136-145) mmol/L Potassium 3.4 L 3.7 (3.5-5.1) mmol/L Chloride 104 104 (98-107) mmol/L Carbon Dioxide 24 29 (21-32) mmol/L BUN 13 12 (6-23) mg/dl Creatinine 0.70 0.66 (0.6-1.2) mg/dl Glucose 99 97 (70-99(Fasting)) mg/dl Calcium 9.0 9.0 (8.6-10.3) mg/dl Direct Bilirubin 0.1 (0-0.2) mg/dl AST 15 26 (13-39) U/L ALT 7 7 (7-52) U/L Alkaline Phosphatase 80 83 (34-104) U/L Total Protein 6.7 6.4 (6.0-8.3) gm/dl Albumin 4.0 3.8 (3.4-5.0) gm/dl Intake and Output 04/08/24 04/09/24 04/09/24 22:59 06:59 14:59 Intake Total 850 / 850 Balance 850 / 850 Intake: IV 850 / 850 Magnesium Sulfate / D5w 1 gm In 200 / 200 100 ml @ 200 mls/hr IV Q30M [facility] Rx#:[id number] cefTRIAXone SODIUM 2,000 mg In 50 / 50 50 ml @ 100 mls/hr IV NOW STA Rx#:[id number] Left Antecubital 600 / 600 Other: # Unmeasured Voids 1 Weight 71.486 kg 72.348 kg Weight Measurement Method Built in [facility] Built in [facility] Diagnostic Findings Telemetry reviewed: NSR, no arrhythmias EKG reviewed from this morning: Sinus bradycardia Normal EKG no acute change from previous EKG reviewed from admission: NSR with PACs no acute ischemic changes Echo report pending Chest X-Ray 04/08/24 17:29 EXAM: Radiograph of the Chest 1 View INDICATION: Syncope. TECHNIQUE: Frontal view of the chest. COMPARISON: 06/24/2023 FINDINGS: Lungs and pleural spaces: Increased interstitial markings is unchanged and appears chronic. No consolidation or pulmonary edema. No pleural effusion or pneumothorax. Heart: Shape and configuration within normal limits allowing for technique. Mediastinum: Normal contour. Bones/joints: No fracture, erosion or dislocation. Soft tissues: No abnormality noted. No radiopaque foreign body noted. Upper abdomen: No abnormality noted. IMPRESSION: No acute cardiopulmonary disease. ACT 112: Negative or not required by law. Electronically signed by Dione Skaggs 04-08-2024 6:[address] 04/08/24 17:29 EXAM: CT Head Without Intravenous Contrast INDICATION: Syncope x 3 today. TECHNIQUE: Axial computed tomography images of the head/brain without intravenous contrast. Sagittal and/or coronal reformats are provided. Sagittal and coronal reformatted images were created and reviewed. This CT exam was performed using one or more of the following dose reduction techniques: automated exposure control, adjustment of the mA and/or kV according to patient size, and/or use of iterative reconstruction technique. COMPARISON: No relevant prior studies available. FINDINGS: Limitations: None. Brain and extra-axial spaces: Old lacunar infarct left thalamus. No acute infarct. No hemorrhage. No extra-axial fluid collection or hydrocephalus. No significant white matter disease. Bones/joints: No abnormality noted. Soft tissues: No significant abnormality noted. Vasculature: No acute abnormality noted. Sinuses: No layering fluid in the visualized portions of the paranasal sinuses. Mastoid air cells: Chronic sclerotic changes left mastoid air cells. No mastoid effusion. Orbits: No significant abnormality noted. IMPRESSION: No acute findings in the head/brain. Negative or not required by law. Electronically signed by Dione Skaggs 04-08-2024 6:46 PM Hip/Pelvis X-Ray 04/08/24 19:11 Exam(s): XR HIP + PELVIS, 1 view EXAM: XR Left Hip With Pelvis When Performed, 2 or 3 Views CLINICAL HISTORY: Reason for exam: fall, pain. TECHNIQUE: Two or three views of the left hip with pelvis when performed. COMPARISON: No relevant prior studies available. FINDINGS: Bones/joints: Unremarkable. No fracture or malalignment. IMPRESSION: Normal left hip x-rays. Electronically signed by: Barron Calderon MD 04/08/24 21:41 PM Medications Administered Current Inpatient Medications Acetaminophen (Acetaminophen 325 Mg Tab) 650 mg PO Q4H PRN PRN Reason: Pain or Fever Stop: 05/08/24 22:09 Last Admin: 04/09/24 02:44 Dose: 650 mg Albuterol (Albuterol Hfa 8 Gm Inhaler) 2 puffs INH Q4 PRN PRN Reason: Wheezing Stop: 05/08/24 22:09 Gabapentin (Gabapentin 600 Mg Tab) 600 mg PO Q24H KATHLEEN Stop: 04/12/24 09:01 Gabapentin (Gabapentin 600 Mg Tab) 600 mg PO Q12H [facility] Stop: 04/11/24 09:01 Gabapentin (Gabapentin 600 Mg Tab) 600 mg PO Q8H [facility] Stop: 04/10/24 10:01 Folic Acid 1 mg/ Syringe 10 mls @ 5 mls/min IV QAM [facility] Stop: 05/09/24 08:59 Last Admin: 04/09/24 09:54 Dose: 5 mls/min Thiamine HCl 100 mg/ Syringe 10 mls @ 2 mls/min IV QAM [facility] Stop: 05/09/24 08:59 Last Admin: 04/09/24 09:55 Dose: 2 mls/min Sodium Chloride (Nss) 1,000 mls @ 80 mls/hr IV .[id number] [facility] Stop: 04/09/24 23:09 Last Admin: 04/08/24 22:39 Dose: 80 mls/hr Ceftriaxone Sodium (Rocephin) 2,000 mg in 50 mls @ 100 mls/hr IV Q24H [facility] Stop: 04/14/24 19:59 Lorazepam (Lorazepam 2 Mg/1 Ml Vial) 2 mg IV UD PRN; Protocol PRN Reason: EtOH Withdrawal AWSS Score 8,9 Stop: 05/08/24 22:09 Lorazepam (Lorazepam 2 Mg/1 Ml Vial) 1 mg IV UD PRN; Protocol PRN Reason: EtOH Withdrawal AWSS Score 6,7 Stop: 05/08/24 22:09 Lorazepam (Lorazepam 2 Mg/1 Ml Vial) 3 mg IV ONCE PRN; Protocol PRN Reason: EtOH Withdrawal AWSS Score 10+ Lorazepam (Lorazepam 2 Mg/1 Ml Vial) 1 mg IV Q2H PRN PRN Reason: Breakthrough Seizures Stop: 05/08/24 22:09 Multivitamins (Multivitamin Tab) 1 tab PO [facility] Stop: 05/09/24 08:59 Last Admin: 04/09/24 09:56 Dose: 1 tab Nitroglycerin (Nitroglycerin Sl 0.4 Mg/Tab Tab) 0.4 mg SL Q5M PRN PRN Reason: Chest Pain Stop: 05/08/24 22:09 Polyethylene Glycol (Polyethylene (Miralax) 17 Gm Pack) 17 gm PO DAILY PRN PRN Reason: Constipation Stop: 05/08/24 22:09
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
--- NOTE | 2024-04-09 13:36 | Electrocardiogram Report ---
Test Reason : Blood Pressure : */* mmHG Vent. Rate : 56 BPM Atrial Rate : 56 BPM P-R Int : 124 ms QRS Dur : 76 ms QT Int : 426 ms P-R-T Axes : 85 69 53 degrees QTcB Int : 411 ms Poor data quality, interpretation may be adversely affected Sinus bradycardia Otherwise normal ECG When compared with ECG of 09-Apr-2024 05:26, No significant change was found Confirmed by Des Lund ([id number]) on 04/09/2024 1:36:16 PM Referred By: REFERRED SELF Confirmed By: Des Lund
--- NOTE | 2024-04-09 13:36 | Electrocardiogram Report ---
Test Reason : Blood Pressure : */* mmHG Vent. Rate : 66 BPM Atrial Rate : 66 BPM P-R Int : 130 ms QRS Dur : 80 ms QT Int : 434 ms P-R-T Axes : 75 78 66 degrees QTcB Int : 454 ms Poor data quality, interpretation may be adversely affected Normal sinus rhythm Normal ECG When compared with ECG of 08-Apr-2024 16:41, Premature atrial complexes are no longer Present Confirmed by Des Lund ([id number]) on 04/09/2024 1:36:12 PM Referred By: REFERRED SELF Confirmed By: Des Lund
[2024-04-09] MEDS: IBUPROFEN 200 MG TAB PO STA (14:45)
--- NOTE | 2024-04-09 16:03 | Hospitalist Progress Note ---
Date of Service April 09, 2024 Assessment & Plan (1) Syncope and collapse: Plan: 48-year-old female with past medical history significant for chronic hepatitis C cured after antiviral drug therapy, gastroparesis, left foot drop, cervical myelopathy, ongoing alcoholism, tobacco use disorder, paranoia, depression, generalized anxiety disorder, psychosocial stressors presents with syncope. Patient was sitting in the car when she felt blurred vision and sweating and she went out of the car when she suddenly passed out and fell down. Syncopal event Possible Seizure Acute UTI Patient presented with a syncopal event. CT head on admission did not show any acute finding Lab work unremarkable Urinalysis suggestive of infection Urine culture growing Klebsiella pneumoniae No episode of syncopal event since hospitalization. No signs or symptoms of seizures. Telemetry does not show any events. Cardiology was consulted; they recommend outpatient Zio patch. Neurology recommended MRI brain, MRI cervical and thoracic spine with and without contrast. EEG is pending Continue on antibiotics; follow up on sensivities. Alcohol use disorder Alcohol withdrawal IV thiamine and folic acid Multivitamins Alcohol withdrawal protocol with Ativan as needed Close monitor Depression Generalized anxiety disorder Paranoia Currently not on any medications follow with psychiatrist History of hep C cured after antiviral drug therapy DVT prophylaxis heparin Disposition Telemetry Full code. Time spent evaluating patient, direct bedside care, chart review, placing orders, interpretation of diagnostic studies, discussion with consultants, patient, and family members, as well as other required patient management activities is 50 minutes Please note the above document was generated using voice recognition software. It may contain grammatical, syntax or spelling errors. Any formal questions or concerns about the content, text or information contained within the body of this dictation should be directly addressed to the provider for clarification Admission and Anticipated Discharge Date Admission Date: April 08, 2024 Subjective Patient seen and examined at bedside. Comfortable; not in distress. Denies fever, chills, chest pain, shortness of breath, abdominal pain or urinary symptoms. No significant overnight events Review of Systems Review of Systems: All systems reviewed & are unremarkable except as noted in Subjective Physical Exam Physical Exam: General-Not in distress Head- atraumatic Eyes- PERRL. ENT- oropharynx clear Neck- supple, no JVD. Lungs- clear to auscultation no wheezing or crackles Heart- regular rate and rhythm; no murmur, no gallop. Abdomen- normal bowel sounds, soft, nontender, no distension Extremities- no pretibial edema, no erythema seen Neuro- alert, oriented PERRL, no facial palsy; no dysarthria; obeys commands, moves extremities Results & Data Results & Data Vital Signs (Past 12 Hours) Vital Signs Temp Pulse Pulse Resp BP Pulse Ox O2 Del Method 04/09/24 12:34 36.6 C 80 18 139/87 94 Room Air 04/09/24 08:23 66 04/09/24 08:23 36.5 C 76 20 125/79 96 Room Air
[2024-04-09] MEDS: FAMOTIDINE 20 MG TAB PO SCH (16:59)
[2024-04-09] MEDS ORDERED: Nursing to Pharmacy Communication SCH (17:00)
[2024-04-09] MEDS ORDERED: GABAPENTIN 600 MG TAB PO SCH (18:00)
[2024-04-09] MEDS: GADOBUTROL 65ML VIAL IV ONE (18:48)
--- NOTE | 2024-04-09 19:55 | Magnetic Resonance Report ---
Exam(s): MRI HEAD W/WO Contrast IV Amt: 7mL Gadavist given IV EXAM: MR Head Without and With Intravenous Contrast CLINICAL HISTORY: Reason for exam: possible seizure. TECHNIQUE: Magnetic resonance images of the head/brain without and with intravenous contrast in multiple planes. CONTRAST: Patient received 7mL Gadavist given IV of IV contrast COMPARISON: Head CT 04/08/2024 FINDINGS: Brain: Unremarkable. No mass. No hemorrhage. No acute infarct. No abnormal enhancement. Symmetric appearance of the temporal lobes and hippocampi. Ventricles: Unremarkable. No ventriculomegaly. Bones/joints: Unremarkable. No acute fracture. Sinuses: Unremarkable as visualized. No acute sinusitis. Mastoid air cells: Partial mastoid effusion. Orbits: Unremarkable as visualized. IMPRESSION: No acute intracranial abnormality. Electronically signed by: Barron Calderon MD 04/09/24 19:54 PM
--- NOTE | 2024-04-09 20:02 | Magnetic Resonance Report ---
Exam(s): MRI C SPINE IV Amt: 7mL Gadavist given IV EXAM: MR Cervical Spine With Intravenous Contrast CLINICAL HISTORY: Reason for exam: rule out injury. TECHNIQUE: Magnetic resonance images of the cervical spine with intravenous contrast in multiple planes. CONTRAST: Patient received 7mL Gadavist given IV of IV contrast COMPARISON: CT C-spine 04/08/2024. FINDINGS: No acute fracture or malalignment. No ligamentous injury. C4-C7 ACDF. Cord atrophy and increased signal from C4-C7. Likely chronic. No epidural collection. C2-C3: No canal or foraminal stenosis. C3-4: No canal or foraminal stenosis. C4-5: Mild canal stenosis. No foraminal stenosis. C5-6: Mild canal stenosis. No foraminal stenosis. C6-7: No canal stenosis. Severe left and moderate right foraminal stenosis. C7-T1: No canal stenosis. Mild left and no right foraminal stenosis. IMPRESSION: 1. No traumatic injury. 2. Multilevel surgical changes. Cord atrophy and central cord signal abnormality at the surgical levels favored chronic. Electronically signed by: Barron Calderon MD 04/09/24 20:01 PM
--- NOTE | 2024-04-09 20:35 | Magnetic Resonance Report ---
Exam(s): MRI T SPINE W/WO Contrast IV Amt: 7mL Gadavist given IV EXAM: MR Thoracic Spine Without and With Intravenous Contrast CLINICAL HISTORY: Reason for exam: rule out injury. TECHNIQUE: Magnetic resonance images of the thoracic spine without and with intravenous contrast in multiple planes. CONTRAST: Patient received 7mL Gadavist given IV of IV contrast COMPARISON: No relevant prior studies available. FINDINGS: No acute fracture or malalignment. No ligamentous injury. No epidural collection. Normal cord signal. No spinal canal stenosis. IMPRESSION: No acute abnormality within the thoracic spine. Electronically signed by: Barron Calderon MD 04/09/24 20:34 PM
[2024-04-09] MEDS: cefTRIAXone SODIUM 2,000 MG/50 ML BAG IV SCH (20:53)
[2024-04-09] MEDS: HEPARIN SOD 5,000 UNIT/0.5 ML VIAL SQ SCH (22:13)
--- NOTE | 2024-04-10 06:37 | Electroencephalogram ---
EEG Procedure Note Date of Service April 09, 2024 Start / End Times Start Time: 1022 End Time: [address] Tamera Monaco History A 48 year old female with shaking spells. EEG performed for evaluation of epileptiform activity. Home Medication List Medication Instructions Recorded Confirmed Type albuterol sulfate 90 mcg/actuation 2 puff inhalation Q4 PRN Wheezing 10/23/19 04/08/24 History aerosol inhaler Inpatient Medication List Acetaminophen (Acetaminophen 325 Mg Tab) 650 mg PO Q4H PRN PRN Reason: Pain or Fever Stop: 05/08/24 22:09 Last Admin: 04/10/24 00:50 Dose: 650 mg Documented By: Admin: 04/09/24 19:43 Dose: 650 mg Documented By: Admin: 04/09/24 02:44 Dose: 650 mg Documented By: Admin: 04/08/24 22:35 Dose: 650 mg Documented By: KEN Famotidine (Famotidine 20 Mg Tab) 20 mg PO QAM [facility] Stop: 05/09/24 14:29 Last Admin: 04/09/24 16:59 Dose: 20 mg Documented By: Heparin Sodium (Porcine) (Heparin Sod 5,000 Unit/0.5 Ml Vial) 5,000 units SQ Q8 [facility] Stop: 05/09/24 21:59 Last Admin: 04/10/24 06:14 Dose: Not Given Documented By: Admin: 04/09/24 22:13 Dose: Not Given Documented By: KEN Folic Acid 1 mg/ Syringe 10 mls @ [facility] Stop: 05/09/24 08:59 Last Admin: 04/09/24 09:54 Dose: 5 mls/min Documented By: Thiamine HCl 100 mg/ Syringe 10 mls @ 2 mls[facility] Stop: 05/09/24 08:59 Last Admin: 04/09/24 09:55 Dose: 2 mls/min Documented By: Ceftriaxone Sodium (Rocephin) 2,000 mg in 50 mls @ 100 mls/hr IV Q24H [facility] Stop: 04/14/24 19:59 Last Infusion: 04/09/24 21:25 Dose: Infused Documented By: Admin: 04/09/24 20:53 Dose: 100 mls/hr Documented By: KEN Multivitamins (Multivitamin Tab) 1 tab PO QAM [facility] Stop: 05/09/24 08:59 Last Admin: 04/09/24 09:56 Dose: 1 tab Documented By: Discontinued Medications Gabapentin (Gabapentin 600 Mg Tab) 1,200 mg PO NOW ONE Stop: 04/08/24 22:11 Last Admin: 04/08/24 22:36 Dose: 1,200 mg Documented By: KEN Gabapentin (Gabapentin 600 Mg Tab) 600 mg PO Q6H [facility] Stop: 04/09/24 10:01 Last Admin: 04/09/24 09:56 Dose: 600 mg Documented By: Admin: 04/09/24 04:28 Dose: 600 mg Documented By: KEN Gadobutrol (Gadobutrol 65ml Vial) 7 ml IV ONCE ONE Stop: 04/09/24 18:49 Last Admin: 04/09/24 18:48 Dose: 7 ml Documented By: CHRISTINA Magnesium Sulfate/Dextrose (Magnesium Sulfate / D5w) 1 gm in 100 mls @ 200 mls/hr IV Q30M [facility] Stop: 04/08/24 20:06 Last Infusion: 04/08/24 21:05 Dose: Infused Documented By: Admin: 04/08/24 20:18 Dose: 200 mls/hr Documented By: Infusion: 04/08/24 20:18 Dose: Infused Documented By: Admin: 04/08/24 19:29 Dose: 200 mls/hr Documented By: SHASTA Ceftriaxone Sodium (Rocephin) 2,000 mg in 50 mls @ 100 mls/hr IV NOW STA Stop: 04/08/24 20:02 Last Infusion: 04/08/24 20:47 Dose: Infused Documented By: Admin: 04/08/24 20:18 Dose: 100 mls/hr Documented By: SHASTA Thiamine HCl 100 mg/ Syringe 10 mls @ 2 mls/min IV NOW STA Stop: 04/08/24 20:53 Last Admin: 04/08/24 21:52 Dose: 2 mls/min Documented By: SHASTA Sodium Chloride (Nss) 1,000 mls @ 80 mls/hr IV .[id number] [facility] Stop: 04/09/24 23:09 Last Infusion: 04/10/24 04:48 Dose: Infused Documented By: Admin: 04/09/24 12:53 Dose: 80 mls/hr Documented By: Infusion: 04/09/24 11:09 Dose: Infused Documented By: Admin: 04/08/24 22:39 Dose: 80 mls/hr Documented By: KEN Ibuprofen (Ibuprofen 200 Mg Tab) 400 mg PO NOW STA Stop: 04/09/24 14:19 Last Admin: 04/09/24 14:45 Dose: 400 mg Documented By: Description This is a 21 electrode EEG with a single channel dedicated to limited EKG. The electrodes were placed in accordance with the International 10-20 system. REPORT: At the onset of the EEG, the patient is awake. The background activity consist of 9 Hz, persistent, posteriorly dominant, moderate amplitude, symmetric and rhythmic activity that is reactive to eye opening. Anteriorly, it consist of a mixture of low voltage indeterminate activity and 15-25 Hz, persistent, low amplitude, symmetric and rhythmic activity. Stepwise intermittent photic stimulation (1-21 Hz) and hyperventilation (3 minutes, good effort) do not induce any abnormalities. Drowsiness is characterized by low amplitude mixed frequency activity, roving eye movements, and decreased eye blinking and muscle artifact. Interpretation IMPRESSION: This is a normal awake and drowsy routine EEG. There is no evidence of focal slowing or epileptiform activity.
[2024-04-10 07:27] VITALS: BP 122/78; PULSE 87; RESP 21; TEMP 98.1; O2SAT 96
[2024-04-10 07:50] LABS: Basophils # (auto) 0.05 K/uL (0.00-0.20); Basophils % (auto) 0.9 %; Eosinophils # (auto) 0.25 K/uL (0.00-0.50); Eosinophils % (auto) 4.6 %; Hematocrit (blood only) 38.1 % (37.0-47.0); Hemoglobin 12.7 g/dl (12.0-16.0); Immature Granulocytes # (auto) 0.01 K/uL (0.01-0.20); Immature Granulocytes % (auto) 0.2 %; Lymphocytes # (auto) 1.12 K/uL (1.20-3.40); Lymphocytes % (auto) 20.7 %; Mean Corpuscular Hemoglobin 29.9 pg (25.0-34.0); Mean Corpuscular Hgb Conc 33.3 g/dL (32.0-36.0); Mean Corpuscular Volume 89.6 fL (80.0-100.0); Mean Platelet Volume 11.3 fL (9.4-12.4); Monocytes # (auto) 0.42 K/uL (0.11-0.59); Monocytes % (auto) 7.8 %; Neutrophils # (auto) 3.56 K/uL (1.40-6.50); Neutrophils % (auto) 65.8 %; Platelet Count 185 K/uL (130-400); RDW Coefficient of Variation 13.3 % (11.5-14.5); RDW Standard Deviation 43.6 fL (36.4-46.3); Red Blood Count 4.25 M/uL (4.20-5.40); White Blood Count 5.41 K/ul (4.8-10.8)
[2024-04-10 08:14] LABS: BUN Creatinine Ratio 15.1 (10-20); Calcium 9.1 mg/dl (8.6-10.3); Creatinine Clr Calc Pharmacy 128.1 ml/min; Potassium 3.8 mmol/L (3.5-5.1)
--- NOTE | 2024-04-10 08:19 | Electrocardiogram Report ---
Test Reason : Blood Pressure : */* mmHG Vent. Rate : 59 BPM Atrial Rate : 59 BPM P-R Int : 134 ms QRS Dur : 84 ms QT Int : 440 ms P-R-T Axes : 79 77 67 degrees QTcB Int : 435 ms Sinus bradycardia with sinus arrhythmia Otherwise normal ECG When compared with ECG of 09-Apr-2024 09:37, No significant change was found Confirmed by Des Lund ([id number]) on 04/10/2024 8:18:55 AM Referred By: REFERRED SELF Confirmed By: Des Lund
[2024-04-10] MEDS: NICOTINE 21 MG/24 HR TDSY TD SCH (09:02)
[2024-04-10] MEDS: cephALEXin 500 MG CAP PO SCH (09:34)
--- NOTE | 2024-04-10 09:50 | Cardiology Progress Note ---
Date of Service April 10, 2024 Assessment & Plan (1) Syncope and collapse: (2) Hypomagnesemia: Plan 04/09/24 Patient admitted after 2 syncopal episodes with possible seizure like activity per patient/bystanders Head CT unremarkable. Neuro consulted and seizure work up pending. No arrhythmias on telemetry BP within normal limits since admission. EKG without ischemic change Low potassium and low magnesium on arrival, supplemented. Likely secondary to chronic alcohol abuse. Echocardiogram pending. HS troponin negative x3 since admission. Repeat pending this morning with atypical chest pain. Repeat EKG at time of chest pain, without ischemic changes. Would monitor for symptoms of alcohol withdrawal. Proceed with neurologic work up. Alcohol cessation encouraged. Patient reports she was previously in rehab for alcohol abuse. Continue on telemetry during admission. Consider outpatient ZIO monitor upon discharge. 04/10/24: No recurrent syncopal events since admission. Neurologic work up unremarkable including EEG and MRI No arrhythmias on telemetry Normal echo Recommend outpatient 14 day ZIO on discharge. This can be arranged with PCP. However, patient reports she currently does not have insurance. She is working on this. Stable for discharge from cardiac perspective. Case discussed with Dr. Reyes I spent a total of 30 minutes on the date of service in preparation, delivery, and documentation of the care provided to this patient, excluding any time spent in the performance of separately billed services. Elda Flannery PA-C Department of Cardiology, [facility] This chart was completed in part utilizing Speech Voice Recognition Software. Grammatical errors, random word insertions, pronoun errors, and incomplete sentences are an occasional consequence of this system due to software limitations, ambient noise, and hardware issues. Any formal questions or concerns about the content, text, or information contained within the body of this dictation should be directly addressed to the provider for clarification. Admission and Anticipated Discharge Date Admission Date: April 08, 2024 Supervising Physician Co-Signing Physician Notes Attending attestation: Case reviewed with the advanced practitioner and I agree with the assessment and plan as outlined. Patient discharged before I had the opportunity to examine her in person. Richy Reyes, DO Subjective Patient sitting at edge of bed. Talking to family on the phone. Anxious for discharge. She denies recurrent chest pain this morning. Reports the chest pain she had yesterday is "chronic" and comes and goes for years. Non exertional. Negative evaluation during admission. No SOB. No recurrent dizziness, lightheadedness, syncope or near syncope. No arrhythmias on telemetry. Review of Systems Review of Systems: All systems reviewed & are unremarkable except as noted in HPI & below Physical Exam Constitutional: WD/WN, vitals as above Neck: trachea midline, no thyromegaly Respiratory: normal respiratory effort; no labored breathing Auscultation: lungs clear to auscultation bilaterally Cardiovascular: Rate/Rhythm: regular rate and regular rhythm Heart Sounds: normal S1 and normal S2; no murmur Vessels: no JVD Extremities: no edema Gastrointestinal (Abdomen): normal bowel sounds, soft, nontender, no hepatosplenomegaly Musculoskeletal: no cyanosis or clubbing, extremities motor strength 5/5 Neurologic: PERRL, EOMI, accommodation nl, no face palsy, no dysarthria Psychiatric: A+Ox3, euthymic affect Results & Data Vital Signs (Past 12 Hours) Vital Signs Temp Pulse Pulse Resp BP Pulse Ox O2 Del Method 04/10/24 07:26 36.7 C 87 21 122/78 96 Room Air 04/10/24 03:42 36.6 C 98 H 18 105/69 98 Room Air 04/10/24 00:00 55 L 04/09/24 23:21 36.6 C 73 17 133/80 97 Room Air Laboratory Results Cardiac Enzymes 04/09/24 Range/Units 11:08 Troponin I High Sens 4.4 (0-14) pg/ml CBC 04/10/24 Range/Units 07:01 WBC 5.41 (4.8-10.8) K/ul RBC 4.25 (4.20-5.40) M/uL Hgb 12.7 (12.0-16.0) g/dl Hct 38.1 (37.0-47.0) % Plt Count 185 (130-400) K/uL Neut # (Auto) 3.56 (1.40-6.50) K/uL Lymph # (Auto) 1.12 L (1.20-3.40) K/uL Mitchell # (Auto) 0.42 (0.11-0.59) K/uL Eos # (Auto) 0.25 (0.00-0.50) K/uL Baso # (Auto) 0.05 (0.00-0.20) K/uL Comprehensive Metabolic Panel 04/10/24 Range/Units 07:01 Sodium 139 (136-145) mmol/L Potassium 3.8 (3.5-5.1) mmol/L Chloride 106 (98-107) mmol/L Carbon Dioxide 28 (21-32) mmol/L BUN 8 (6-23) mg/dl Creatinine 0.53 L (0.6-1.2) mg/dl Glucose 112 H (70-99(Fasting)) mg/dl Calcium 9.1 (8.6-10.3) mg/dl Intake and Output 04/09/24 04/10/24 04/10/24 22:59 06:59 14:59 Intake Total 450 / 2550 1100 / 2550 Balance 450 / 2550 1100 / 2550 Intake: IV 50 / 2050 1000 / 2050 Sodium Chloride 0.9% 1,000 ml @ 1000 / 2000 80 mls/hr IV .[id number] [facility] Rx#: [id number] cefTRIAXone SODIUM 2,000 mg In 50 / 50 50 ml @ 100 mls/hr IV Q24H [facility] Rx#:[id number] Oral 400 / 500 100 / 500 Other: Weight 73.7 kg Weight Measurement Method Built in [facility] Diagnostic Findings Telemetry reviewed: NSR ranging 55-70 bmp. No arrhythmias Echo report reviewed from yesterday: Normal LV wall thickness normal LV systolic function with EF 55-60% Normal wall motion No valvular disease Medications Administered Current Inpatient Medications Acetaminophen (Acetaminophen 325 Mg Tab) 650 mg PO Q4H PRN PRN Reason: Pain or Fever Stop: 05/08/24 22:09 Last Admin: 04/10/24 00:50 Dose: 650 mg Albuterol (Albuterol Hfa 8 Gm Inhaler) 2 puffs INH Q4 PRN PRN Reason: Wheezing Stop: 05/08/24 22:09 Cephalexin HCl (Cephalexin 500 Mg Cap) 500 mg PO QID [facility]; Protocol Stop: 04/15/24 08:59 Last Admin: 04/10/24 09:34 Dose: 500 mg Famotidine (Famotidine 20 Mg Tab) 20 mg PO QAM [facility] Stop: 05/09/24 14:29 Last Admin: 04/10/24 09:02 Dose: 20 mg Heparin Sodium (Porcine) (Heparin Sod 5,000 Unit/0.5 Ml Vial) 5,000 units SQ Q8 [facility] Stop: 05/09/24 21:59 Last Admin: 04/10/24 06:14 Dose: Not Given Folic Acid 1 mg/ Syringe 10 mls @ 5 mls/min IV QAM [facility] Stop: 05/09/24 08:59 Last Admin: 04/10/24 09:02 Dose: 5 mls/min Thiamine HCl 100 mg/ Syringe 10 mls @ 2 mls/min IV QAM [facility] Stop: 05/09/24 08:59 Last Admin: 04/10/24 09:01 Dose: 2 mls/min Lorazepam (Lorazepam 2 Mg/1 Ml Vial) 2 mg IV UD PRN; Protocol PRN Reason: EtOH Withdrawal AWSS Score 8,9 Stop: 05/08/24 22:09 Lorazepam (Lorazepam 2 Mg/1 Ml Vial) 1 mg IV UD PRN; Protocol PRN Reason: EtOH Withdrawal AWSS Score 6,7 Stop: 05/08/24 22:09 Lorazepam (Lorazepam 2 Mg/1 Ml Vial) 3 mg IV ONCE PRN; Protocol PRN Reason: EtOH Withdrawal AWSS Score 10+ Lorazepam (Lorazepam 2 Mg/1 Ml Vial) 1 mg IV Q2H PRN PRN Reason: Breakthrough Seizures Stop: 05/08/24 22:09 Miscellaneous (Remove Nicoderm Patch) 1 each N/A DAILY@0859 [facility] Stop: 05/11/24 08:58 Multivitamins (Multivitamin Tab) 1 tab PO QAM [facility] Stop: 05/09/24 08:59 Last Admin: 04/10/24 09:02 Dose: 1 tab Nicotine (Nicotine 21 Mg/24 Hr Tdsy) 1 patch TD DAILY [facility] Stop: 05/10/24 06:59 Last Admin: 04/10/24 09:02 Dose: Not Given Nitroglycerin (Nitroglycerin Sl 0.4 Mg/Tab Tab) 0.4 mg SL Q5M PRN PRN Reason: Chest Pain Stop: 05/08/24 22:09 Polyethylene Glycol (Polyethylene (Miralax) 17 Gm Pack) 17 gm PO DAILY PRN PRN Reason: Constipation Stop: 05/08/24 22:09
--- NOTE | 2024-04-10 10:11 | Discharge Summary ---
Discharge Summary Date of Service April 10, 2024 Principal Dx & Hospital Course #1 = Principal Diagnosis (1) Syncope and collapse: (2) Acute UTI: (3) Hypomagnesemia: (4) Chronic radicular lumbar pain: (5) Neuroforaminal stenosis of cervical spine: (6) History of neck surgery: Plan Patient was cared for in the hospital and placed on monitoring analyst. Neurology and cardiology consultations were obtained for the patient's syncopal event which is unclear whether was true syncope versus seizure versus some other type of episode. There was no significant arrhythmias on telemetry monitoring. Echocardiogram showed normal ejection fraction. Cardiology is recommending considering outpatient ZIO monitoring that can be arranged to PCP but otherwise no other interventions here in the hospital and would not need cardiology out patient follow-up. Neurology recommended EEG as well as imaging of the brain cervical spine and thoracic spine. EEG showed no signs of seizure and was read as normal. MRI of the brain cervical and thoracic spine did not show any definitive cause for her syncopal episode. Patient at the time of admission reported drinking 3-5 shots of vodka per day. There was no significant signs of withdrawal here in the hospital and did not need any as needed medications for withdrawal symptoms. On the day of discharge she was somewhat upset that she was considered "an alcoholic. And that this was humiliating." She reports to me on the day of discharge that she may only drink a few shots couple times a week. During her hospitalization apparently there was an anonymous concern that the patient was smoking/vaping here in the hospital. In her presence, security did go through her belongings and did fine vaping items. This was placed in the ball and will be returned to her at the time of discharge. Her urine culture did grow out Klebsiella. Sensitivities as noted below. She received IV antibiotics here in the hospital converted to oral Keflex for discharge. On day of discharge her vital signs are stable. Her electrolytes have been replaced. There was no signs of any type of significant alcohol withdrawal. She completed a course of oral antibiotics for UTI. She was highly encouraged to stop all alcohol. Encouraged to stop smoking. [employer] driving form was sent due to unclear whether this was a true seizure possibly withdrawal seizure. She can follow-up with her outpatient providers may need outpatient neurology follow-up as well. Notes For Next Care Provider Discussed outpatient ZIO monitor Neurology outpatient follow-up May need outpatient spine surgery evaluation Medication Changes From Visit [facility] for UTI Admission HPI Per Admitting Provider 48-year-old female with past medical history significant for chronic hepatitis C cured after antiviral drug therapy, gastroparesis, left foot drop, cervical myelopathy, ongoing alcoholism, tobacco use disorder, paranoia, depression, generalized anxiety disorder, psychosocial stressors presents with syncope. Patient was sitting in the car when she felt blurred vision and sweating and she went out of the car when she suddenly passed out and fell down. Patient thinks she hit her head. She passed out for few seconds. Her was with her. After she woke up she passed out again for few more seconds. Then she sat on the chair . As EMS was coming she had lot of shaking of the body. She remembers shaking. No biting of the tongue. No bowel or bladder incontinence. Has some mild headache. Has mild chest discomfort. Currently no nausea. No cough. No runny nose or sore throat. Eating and drinking okay. No abdominal pain. Normal bowel movements. She says she has burning micturition since about a month. She says she drinks 3-5 shots of vodka daily. Last drink was mixed drink in the morning. Currently hemodynamics are okay. Patient also has history of cervical cord compression and decompression and progressive gait dysfunction and follows with neurology. Patient states she falls frequently. Patient says she is not taking any medication currently. Past medical history. As mentioned above Past surgical history. Arthrodesis. Colonoscopy and EGD. EGD with endoscopic ultrasound. Injection of lumbosacral spine. Pyloromyotomy. Discectomy anterior cervical. Ultrasound guided right breast biopsy/fibroadenoma. Social history. . Smokes 0.5 packs a day. Alcohol 3-5 shots of vodka daily. Smokes marijuana 2 times a week as per epic. History of IV drug use and reason for hep C as per epic. Family history. Son has Jackson's, bipolar disorder. Mother had emphysema. Sister has GERD. Father had lung disorder. Cousin has parkinsonism. Admission Exam Per Admitting Provider I refer you to the H&P Discharge Exam Constitutional: Alert HEENT: Mucous membranes moist. Lungs: Clear to auscultation, decreased, no wheezes rales or rhonchi CV: S1-S2, regular Abdomen: Soft, nontender, nondistended Extremities: No significant edema Neuro: No focal deficits Psych: Cooperative, normal mood Updated Medication List Medication Instructions Recorded Confirmed Type albuterol sulfate 90 mcg/actuation 2 puff inhalation Q4 PRN Wheezing 10/23/19 04/08/24 History aerosol inhaler cephalexin 500 mg capsule 500 mg PO QID 3 days #12 caps 04/10/24 Rx Hospital Stay Data Consultations 04/08/24 19:34 ED Decision to Admit Stat 04/09/24 08:00 Consult Cardiology Routine Consult Neurology Routine Diagnostic Imagining Performed 04/08/24 17:29 CT cervical spine wo con Stat CT head/brain wo con Stat 04/09/24 12:53 MRI Brain [MR brain wo/w con] Routine 04/09/24 13:15 MRI Cervical [MR cervical spine wo/w con] Routine MRI Thoracic [MR thoracic spine wo/w con] Routine Reviewed imaging, laboratory and diagnostic studies. Pertinent findings as below. CBC BMP on the day of's discharge stable Thoracic spine MRI no acute findings Cervical spine MRI shows foraminal stenosis Brain MRI shows no acute abnormalities Hip and pelvis x-ray no acute fracture EEG read as normal no seizure activity Echocardiogram ejection fraction 55 to 60% no wall motion abnormalities no significant valvular disease. I refer to full report for details Urine culture grew out Klebsiella sensitive to cefazolin and ceftriaxone sensitive to all antibiotics tested except ampicillin sulbactam Pending Results Patient Have Any Pending Studies at Discharge: No Discharge Instructions Given to Patient (Per Discharging Provider) Discuss outpatient ZIO monitor with your PCP Strongly recommend you stop all alcohol and beer Strongly recommend you stop smoking Total Time Total Time Spent Total Time Spent (In Minutes): 33
[2024-04-10] MEDS ORDERED: GABAPENTIN 600 MG TAB PO SCH (21:00)
[2024-04-12] MEDS ORDERED: GABAPENTIN 600 MG TAB PO SCH (09:00)
== END 2024-04-10 10:40 | disposition home or self-care (01) | DRG 312 ==
LOC: ED 16:27 → 4W 20:47 → SUATTDRO 20:47 → 4W 21:51